=== PATIENT | female | born 1965 | race Caucasian/White ===

== ENCOUNTER 2016-07-06 08:39 | Emergency (ER) | payer OTHER ==
[~2016-07-06] VITALS: Ht 152.4 cm; Wt 67.1 kg
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
[2016-07-06] MEDS ORDERED: PREDNISOLO15 MG/5 M4 PO (09:21)
--- NOTE | 2016-07-06 10:43 | RADIOLOGY REPORT ---
EXAMINATION: XR PELVIS. Right foot. Lumbar spine. CLINICAL INFORMATION: Fall with pain COMPARISON: None TECHNIQUE: AP view of the pelvis. Three-view right foot. 4 view lumbar spine. FINDINGS: There is no evidence of acute fracture or dislocation of the right foot. There is some soft tissue swelling seen about the metatarsophalangeal joints. There is mild hallux valgus deformity of the first metatarsophalangeal joint. There is no evidence of acute fracture or diastases of the pelvis. Hip joints appear maintained. There is some deformity about the right iliac crest which may be related to previous surgery for donor bone graft. There is a 1.2 x 0.7 cm density seen about the medial aspect of the right ileum which may represent bone island or possible appendicolith. No significant sacroiliac joint disease is seen. There are 5 nonrib bearing lumbar vertebra. The bony texture and alignment is satisfactory. No acute fracture, spondylolisthesis, spondylolysis is appreciated. No sacrum or coccygeal abnormality seen. There is some mild prominence of the L4-L5 and L5-S1 facet joints which may be related to some degree of facet arthropathy. IMPRESSION: Soft tissue swelling without significant bony abnormality of the right foot identified. No evidence of acute fracture or diastases of the pelvis. Probable right iliac bone donor site and right iliac bone island or appendicolith. No significant lumbosacral spine abnormality identified.
[2016-07-06] MEDS ORDERED: PERCOCET 5-3251 EACH PO (10:53)
[2016-07-06 11:01] VITALS: BP 120/80
== END 2016-07-06 11:02 ==
LOC: ERH 08:39
DX: S60.221A Contusion of right hand, initial encounter (principal); S09.90XA Unspecified injury of head, initial encounter; M54.5 Low back pain; W10.9XXA Fall (on) (from) unspecified stairs and steps, initial encounter; Y93.89 Activity, other specified
CPT/HCPCS: 72110; 72170; 73630-RT; 96372

== ENCOUNTER 2016-09-06 13:03 | Inpatient (IN) | payer OTHER ==
[~2016-09-06] VITALS: Ht 158.8 cm; Wt 67.6 kg
[~2016-09-06 13:03] MED LIST: PERCOCET 5-3251 EACH PO; PREDNISOLO15 MG/5 M4 PO
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
--- NOTE | 2016-09-06 13:14 | NUR ---
PT STATES SHE HAS BEEN TAKING HER MEDICATION BUT SHE HATES TAKING IT BECAUSE IT HAS MADE HER GAIN WEIGHT AND SHE IS NOW STRUGGLING WITH BULIMIA AND ANOREXIA AGAIN. PT STATES "I JUST PRAY EVERYDAY LILLIANA TAKES ME HOME. I HATE LIVING THIS WAY"
--- NOTE | 2016-09-06 13:27 | NUR ---
PT TO ROOM 13 FOR EVAL, FAMILY MEMBER WITH PATIENT. REPORT GIVEN TO DESTINEY VASQUEZ CALLED FOR A WANDING
--- NOTE | 2016-09-06 13:30 | NUR ---
SECURITY AT BEDSIDE FOR WANDING PT CHANGED INTO BLUE SCRUBS
--- NOTE | 2016-09-06 13:31 | NUR ---
PT PRESENTS WITH STEVE FOR +SI AND INCREASED DEPRESSION. PT REPORTS THAT SHE "IS NOT ABLE TO GET PAST THE OF HER GRANDDAUGHTER WHICH WAS A FEW YEARS AGO." PER PT, SHE HAS NEUROVEGETATIVE SYMPTOMS INCLUDING STAYING IN BED ALL DAY, POOR APPETITE AND CAN GO 2-4 DAYS WITHOUT EATING. PT'S STEVE WHO LIVES WITH HER STATES HE MAKES SURE SHE EATS AT LEAST ONCE A DAY AND TAKES HER PRESCRIBED MEDICATIONS. PT STATES SHE HAS A "FEAR OF LEAVING THE HOUSE BECAUSE IT IS HER SAFETY ZONE". PT REPORTS PRIOR INPATIENT STAYS, MOST RECENTLY IN DECEMBER 2015 IN [place]. PT REPORTS NIGHTMARES, OCCASIONAL ETOH (WINE) AND HAS A MEDICINAL MARIJUANA CARD. PT REPORTS MEDS INCLUDE - PRISTIQ, BRINTELLEX, MINIPRESS 10MG QHS, HALCION AND VALIUM 10MG QID. PT REPORTS HX OF STOMACH ULCER AND BACK PAIN. PT STATES SHE TOOK SOME PERCOCET RECENTLY THAT HAD BEEN PRESCRIBED TO HER, BUT THAT SHE DOES NOT HAVE A PAIN MANAGEMENT MD. PT REPORTS APPROX 3 HOURS OF SLEEP PER NIGHT WITH MEDICATIONS.
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
[2016-09-06 14:15] LABS: ABSOLUTE BASOPHIL COUNT 0 /CUMM (0.0-0.2); ABSOLUTE EOSINOPHIL COUNT 0.2 /CUMM (0.0-0.7); ABSOLUTE GRANULOCYTE CT 5.3 /CUMM (1.4-6.5); ABSOLUTE LYMPH COUNT 1.9 /CUMM (1.2-3.4); ABSOLUTE MONOCYTE COUNT 0.6 /CUMM (0.10-0.60); BASOPHIL % 0.4 % (0.0-2.0); EOSINOPHIL % 2.2 % (0-5); HEMATOCRIT 39.4 % (37-47); MEAN CORPUSCULAR HGB 31.4 PG (27.0-31.0); MEAN CORPUSCULAR VOLUME 92.5 FL (81.0-99.0); PLATELET COUNT 348 /CUMM (130-400); RBC DISTRIBUTION WIDTH 15.2 % (11.5-14.5); RED BLOOD CELL CT 4.26 /CUMM (4.20-5.40)
--- NOTE | 2016-09-06 14:30 | NUR ---
DR MODI AT BEDSIDE
--- NOTE | 2016-09-06 14:54 | NUR ---
CALLED [facility] FOR DUO-FLORENTINO TREATMENT PER VERBAL ORDER BY DR MODI
--- NOTE | 2016-09-06 16:00 | NUR ---
PER PT, [facility] GAVE HER DUO-NEB TREATMENT
--- NOTE | 2016-09-06 17:24 | NUR ---
THIS RN CALLED [facility] TO REMIND THEM TO SIGN OFF ON DUO-NEB TREATMENT GIVEN TO PT. THE RT WHO HAD GIVEN TREATMENT LEFT AT 3PM.
[2016-09-06] MEDS ORDERED: BRINTELLIX20 M1 PO (17:43)
[2016-09-06] MEDS ORDERED: TRIAZOLAM0.25 M1 PO (17:44)
[2016-09-06] MEDS ORDERED: PROVENTIL HFA6.7 GM INH (17:45)
[2016-09-06] MEDS ORDERED: MINIPRESS5 MG PO (17:45)
[2016-09-06] MEDS ORDERED: PRISTIQ ER50 MG PO (17:45)
[2016-09-06] MEDS ORDERED: DIAZEPAM10 M1 PO (17:45)
[2016-09-06] MEDS ORDERED: BREO ELLIPTA 11 EACH (17:46)
--- NOTE | 2016-09-06 17:47 | NUR ---
MED REC COMPLETED WITH PT. PT REQUESTING VALIUM 10MG AND NICOTINE PATCH AT THIS TIME. WILL MAKE DR MODI AWARE
--- NOTE | 2016-09-06 18:02 | NUR ---
PT MEDICATED WITH VALIUM 10MG PO AND APPLIED 21MG NICOTINE PATCH TO LUE PT'S FIANCEE AT BEDSIDE. PT CALM AND COOPERATIVE. SITTER AT DOOR.
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
--- NOTE | 2016-09-06 19:15 | NUR ---
TRANSPORT BOOKED FOR PT TO [facility]. PT LYING ON BED WITH , CALM AND COOPERATIVE. SITTER AT DOOR.
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
[2016-09-06 22:52] VITALS: BP 149/95
[2016-09-07 07:53] VITALS: BP 117/72
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
[2016-09-07 12:07] VITALS: BP 118/83
--- NOTE | 2016-09-07 12:55 | NUR ---
PT VISIBLE MOST OF THE DAY IN THE MILIEU. SHE WENT TO PLANNING MEETING THIS MORNING BUT REFUSED TO TALK IN GROUP. HOWEVER, SHE DID GO TO FOCUS GROUP AND HAD ACTIVE PARTICIPATION. IN THE BEGINNING OF THE MORNING PT WAS MORE ISOLATIVE, BUT THE DAY PROGRESSED PT HAS BEEN IN THE MILIEU INTERACTING WITH SOME OF HER PEERS. PT IS COMPLIANT WITH THE RULES OF THE UNIT, AND DENIES THOUGHTS TO HURT HERSELF WHEN ASKED.
[2016-09-07 15:45] VITALS: BP 134/78
--- NOTE | 2016-09-07 18:46 | History & Physical ---
General Information and HPI MD Statement: I have seen and personally examined YADI ELIZABETH and documented this H&P. The patient is a 51 year old F who presented with a patient stated chief complaint of depression and suicidal ideation. Source of Information: patient, old records Exam Limitations: no limitations History of Present Illness: The patient is a 51 yo female with h/o depression, COPD, anxiety, bipolar, anorexia, chronic back pain/spinal stenosis/disk disease who presented in the [facility] ED with c/o increased depression and suicidal ideation. Significant stress due to her daughter being in fci after of her 2 year old granddaughter due to her having taken suboxone. She stated that she was unable to cope with the stress. She had decreased appetite. She has a distant h/o drug abuse (crack cocaine), however her urine screen was positive for marijuana. She does describe some increased wheezing and back pain. She denies any fever, chills, purulent sputum, chest pain, abdominal pain. She had been taking some narcotics for back pain. Has GI upset from Ibuprofen and stated that she sometimes took Carafate suspension to ease stomach discomfort. She does use Symbicort inhaler. Allergies/Medications Allergies: Coded Allergies: bee venom protein (honey bee) (Severe, ANAPHYLAXIS 07/06/16) Penicillins (HIVES 07/06/16) Home Med list Albuterol Sulfate (Proventil Hfa) 90 MCG HFA.AER.AD 2 PUF INH 4 TIMES/DAY COPD (Reported) Desvenlafaxine Succinate (Pristiq ER) 50 MG TAB.ER.24H 1 TAB PO DAILY MENTAL HEALTH (Reported) Diazepam 10 MG TABLET 1 TAB PO 4XDP MENTAL HEALTH (Reported) Fluticasone/Vilanterol (Breo Ellipta 100-25 Mcg INH) 100 MCG-25 MCG/DOSE BLST.W.DEV COPD (Reported) Oxycodone HCl/Acetaminophen (Percocet 5-325 MG Tablet) 5 MG-325 MG TABLET 1 TAB PO Q6HR PRN PAIN Prazosin HCl (Minipress) 5 MG CAPSULE 2 CAP PO QPM NIGHTMARES (Reported) Triazolam 0.25 MG TABLET 2 TAB PO QPM INSOMNIA (Reported) Vortioxetine Hydrobromide (Brintellix) 20 MG TABLET 1 TAB PO DAILY MENTAL HEALTH (Reported) Compliance With Home Meds: GOOD Past History Travel History Traveled to [place] past 21 day No Medical History Neurological: NONE EENT: NONE Cardiovascular: NONE Respiratory: asthma, COPD, emphysema Gastrointestinal: NONE Hepatic: NONE Renal: NONE Musculoskeletal: disk herniation, degen joint disease, spinal stenosis Psychiatric: bipolar disease, depression Endocrine: NONE Blood Disorders: NONE Cancer(s): NONE DOWEL MAKER/Reproductive: NONE, HYSTERECTOMY History of MRSA: No History of VRE: No History of CDIFF: No Isolation History: Standard Surgical History Surgical History: non-contributory Past Family/Social History Family History Relations & Conditions if any MOTHER (HTN). Psychosocial History Primary Language: Croatian Smoking Status: Current Everyday Smoker ETOH Use: denies use Illicit Drug Use: denies illicit drug use, FORMER CRACK COCAINE Functional Ability Ambulation: independent Review of Systems Review of Systems Constitutional: Denies: no symptoms. EENTM: Denies: no symptoms. Cardiovascular: Denies: no symptoms. Respiratory: Reports: wheezing. GI: Denies: no symptoms. Genitourinary: Denies: no symptoms. Musculoskeletal: Reports: back pain (LOW BACK PAIN-DISK/SPINAL STEN). Skin: Denies: no symptoms. Neurological/Psychological: Denies: no symptoms. Hematologic/Endocrine: Denies: no symptoms. Immunologic/Allergic: Denies: no symptoms. Exam & Diagnostic Data Last 24 Hrs of Vital Signs/I&O Vital Signs Date Time Temp Pulse Resp B/P B/P Pulse O2 O2 Flow FiO2 Mean Ox Delivery Rate 09/09 1233 79 131/85 09/09 0737 96.3 93 116/72 09/08 2209 76 135/76 09/09 2011 95.6 135/76 09/08 1800 97 Room Air Room Air 09/08 1553 76 141/95 Physical Exam General Appearance Alert, Oriented X3, Cooperative, No Acute Distress Skin No Rashes, No Breakdown, No Significant Lesion HEENT Atraumatic, PERRLA, EOMI, Mucous Membr. moist/pink Neck Supple, No JVD, No thryomegaly, +2 Carotid Pulse wo Bruit, No LAD Cardiovascular Regular Rate, Normal S1, Normal S2, No Murmurs Lungs MILD EXPIRATORY WHEEZE, DIFFUSE Abdomen Normal Bowel Sounds, Soft, No Tenderness, No Hepatospenomegaly Neurological Exam Findings: Normal Gait, Normal Speech, Strength at 5/5 X4 Ext, Normal Tone, Sensation Intact, Cranial Nerves 3-12 NL, Reflexes 2+ Cranial Nerves II through XII: INTACT Extremities No Clubbing, No Cyanosis, No Edema, Normal Pulses, No Tenderness/ Swelling Vascular Normal Pulses, Pulses Symmetrical Assessment/Plan Assessment: #Depression/Suicidal Ideation- in patient with significant stressors. Plan: Admit to [facility]ell/Psychiatry. Meds as per psychiatry. #Asthma/COPD- some mild wheezing at present. Plan: Continue long acting med ed (Symbicort in place of Breo) and Proventil HFA qid. #Chronic Back Pain- patient states disk disease and spinal stenosis. Plan: Tylenol at present and would try to limit oxycodone. #Nicotine Dependence- on patch. Plan: Continue Nicotine Patch. As Ranked By This Provider Problem List: 1. Depression 2. Back pain 3. COPD (chronic obstructive pulmonary disease) Miscellaneous Miscellaneous Documentation Attending Case Discussed With: FABBY REYES,CHALINO [place] Primary Care Physician: UNKNOWN Patient sees these Specialists NONE Level of Patient Care: [facility]ell Consults Needed: Consulting Physician: NONE Attending MD Review Statement Attending Statement Attending Assessment/Plan: SEE ABOVE
[2016-09-07 20:38] VITALS: BP 120/83
--- NOTE | 2016-09-07 21:45 | NUR ---
PT IS VISIBLE ON UNIT, SOCIALIZING WITH PEERS AND WATCHING TV IN LOUNGE. COOPERATIVE AND COMPLIANT WITH STAFF. ATTENDED WRAP UP MEETING THIS EVENING. NO COMPLAINTS OR SI REPORTED. AT TIMES PT IS TEARFUL BUT RESPONDS WELL TO SUPPORT FROM STAFF. PT HAS AN ANXIOUS MOOD AND TEARFUL AFFECT.
--- NOTE | 2016-09-08 03:58 | NUR ---
Dr. Dwyer and Respiratory therapy contacted due to patient increased wheezing, shortness of breath, tripod positioning; on assessment by RT, O2 saturation was 91-92% on room air; per Dr. Dwyer, nebulizer treatment ordered; see medication orders; patient coughing, congestion in lungs evident; will continue to monitor respiratory status.
--- NOTE | 2016-09-08 04:17 | NUR ---
NEBULIZER TREATMENT COMPLETED, PATIENT BREATHING BETTER, LESS SHORTNESS OF BREATH, WHEEZING AND CONGESTION STILL PRESENT BUT GREATLY REDUCED, NO ACCESORY MUSCLE USE, NO TRIPOD POSITIONING.
--- NOTE | 2016-09-08 06:02 | NUR ---
PATIENT AWAKE MOST OF THE NIGHT DUE TO INCREASED SHORTNESS OF BREATH, WHEEZING, CONGESTION; PATIENT SLEPT LAST COUPLE OF HOURS AFTER NEBULIZER TREATMENT HAD IMPROVED HER BREATHING.
[2016-09-08 07:54] VITALS: BP 130/75
--- NOTE | 2016-09-08 12:11 | NUR ---
PT ALTERNATES BETWEEN BEING IN HER ROOM AND BEING PRESENT WITHIN THE MILIEU WHERE SHE APPEARS AT TIMES ANXIOUS AND TEARFUL, HOWEVER IS ABLE TO ASSERT SELF AND MAKE NEEDS KNOWN, NO ISSUES OR COMPLAINTS REPORTED OR OBSERVED, DID NOT ATTEND PLANNING MEETING YET MADE AN EFFORT AND CAME TO FOCUS GROUP WHERE THERE WAS APPROPRIATE INTERACTION WITH PEERS AND STAFF, MEDICATION COMPLAINT.
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
[2016-09-08 15:53] VITALS: BP 141/95
[2016-09-08 20:12] VITALS: BP 135/76
--- NOTE | 2016-09-08 22:53 | NUR ---
PT APPEARED TO LOOK AND SEEM BRIGHTER THAN PAST OBSERVATION. SHE HAS BEEN SMILING AND EXPRESSED TO STAFF THAT SHE IS TRYING TO "FAKE IT TIL YA MAKE IT". SHE ALSO REPORTED THAT THOUGHTS IN HER HEAD WERE "LOOPING" AND IT WAS DIFFICULT FOR HER TO COPE WITH NEGATIVE THOUGHTS OF LOSING HER GRAND CHILD. PT DENIED ANY THOUGHTS OF SI WHEN ASKED.
--- NOTE | 2016-09-09 05:30 | NUR ---
PT WAS UP ONCE IN THE NIGHT AND THEN UP AT 0430 FOR THE MORNING. PT WITH SIGNIFICANT BACK PAIN, RECEIVING PERCOCET X 2, AT 1999 AND 0430.
[2016-09-09 07:37] VITALS: BP 116/72
[2016-09-09 12:33] VITALS: BP 131/85
--- NOTE | 2016-09-09 14:20 | NUR ---
PT IN ROOM MOST OF THE DAY TODAY. HER GOAL WAS TO TALK TO DOCTOR ABOUT MEDICATIONS, AND TO ACTIVELY LISTEN. PT WAS IN ROOM MOST OF THE DAY BECAUSE OF HER BACK HURTING HER. SHE DID NOT ATTEND OTHER GROUPS TODAY AND HAS BEEN LAYING DOWN. SHE HAS BEEN COOPERATIVE WITH STAFF DIRECTION, AND DENIES THOUGHTS TO HURT HERSELF WHEN ASKED.
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
[2016-09-09 16:39] VITALS: BP 112/68
--- NOTE | 2016-09-09 18:35 | SOCIAL WORKER PROG NOTE PSYCH ---
Social Work Progress Note Progress Note COMPLETED P ONLINE REVIEW - REQUESTED CONTINUED STAY - CHECK WEB.
--- NOTE | 2016-09-09 19:26 | NUR ---
PT IS CALM, COOPERATIVE WITH STAFF AND PEERS, AND COMPLIANT WITH UNIT RULES. IS OFTEN IN MILIEU, SLIGHTLY WITHDRAWN, BUT DOES INTERACT WELL WITH OTHERS WHEN ENGAGED. MOOD IS STABLE, AFFECT APPEARS EUTHYMIC TO FULL RANGE, COMMUNICATION IS ORGANIZED AND APPEARS NORMAL IN ALL RESPECTS, AND APPETITE IS NORMAL. PT DENIES SI AT THIS TIME.
[2016-09-09 20:11] VITALS: BP 132/88
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
--- NOTE | 2016-09-10 05:56 | NUR ---
PT SLEPT BETTER WITH EGG LOPEZ ON BED. BACK PAIN PERSISTS.
[2016-09-10 07:53] VITALS: BP 102/70
[2016-09-10 12:29] VITALS: BP 106/56
--- NOTE | 2016-09-10 13:49 | NUR ---
PT IS COMPLIANT AND COOPERATIVE. MOOD IS STABLE WITH A FLAT AFFECT. PT APPEARS ANXIOUS AND DEPRESSED. PT DENIES SI AT THIS TIME, C/O CHRONIC BACK PAIN. PT TENDS TO BE ISOLATIVE IN BED- SLEEPING ON AND OFF. PT OOB FOR MEALS AND VITALS. PT IS ATTENDING SOME GROUPS. VITALS ARE STABLE, APPETITE IS GOOD.
[2016-09-10 16:41] VITALS: BP 120/84
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
--- NOTE | 2016-09-10 19:03 | CP SOUTH PROGRESS NOTE PSYCH ---
Psych (Inpt) Progress Note Progress Note Include the following elements, when applicable: Involvement in the active treatment of the patient with behavioral observations of the patient and the patient's response to the treatment. Review of the ongoing treatment process in the context of the treatment plan. Indication of how multi-disciplinary staff members are carrying out the treatment plan. Plans for future interventions and recommendations for revision of the treatment plan. Liaison with other physicians/providers. Progress Note: PSYCHIATRIST NOTE, 09/10/2016: I discussed this patient's progress to date, current mental status, treatment and discharge planning with staff team today in the daily morning ITTM and also met with her again myself in indivdual session. Patient is tolerating the upward titration in dose of Pristiq well thus far and received her last tapering dose of vortioxetine (10mg) this morning. Though I would like to start tapering current high dose (outpatient) Valium at this point I am concerned this might destabilize patient in the short-term, and she does appear to be improving clinically, is not as intensely sullen, depressed and withdrawn; likely, benzodiazepine taper will have to wait for extended aftercare/monitoring in the IOP setting. Sleep is gradually improving and patient feeling a little more rested but is continuing to experience nightmares, and we are titrating up on Prazosin dose at HS. We are trying to organize a family meeting, but it appears that patient has either alienated or just fallen away from contact with her relatives; we will definitely meet with patient and longtime partner prior to discharge.
[2016-09-10 19:56] VITALS: BP 112/80
--- NOTE | 2016-09-11 07:06 | NUR ---
PT GIVEN PRN PERCOCET AT 2200, PRN XANAX 0.25 PRN AT 2200. SHE WAS UP AGAIN AT 0300 AND SHE WAS GIVEN TRAZADONE PRN AND MELATONIN PRN. PT RETURNED TO BED AT 0330.
[2016-09-11 07:41] VITALS: BP 96/72
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
[2016-09-11 12:13] VITALS: BP 110/72
[2016-09-11 15:53] VITALS: BP 115/73
--- NOTE | 2016-09-11 16:54 | CP SOUTH PROGRESS NOTE PSYCH ---
Psych (Inpt) Progress Note Progress Note Include the following elements, when applicable: Involvement in the active treatment of the patient with behavioral observations of the patient and the patient's response to the treatment. Review of the ongoing treatment process in the context of the treatment plan. Indication of how multi-disciplinary staff members are carrying out the treatment plan. Plans for future interventions and recommendations for revision of the treatment plan. Liaison with other physicians/providers. Progress Note: PSYCHIATRIST NOTE, 09/11/2016: I discussed this patient's progress to date, current mental status, treatment and discharge planning with staff team today in the daily morning ITTM and also met with her again myself in individual session. I had started patient on low dose Trilafon at HS last night to help with racing thoughts around bedtime. We told me this was helpful and has been utilizing low dose Trilafon PRN during the day as well to help with ruminative thinking; I will double HS dose tonight to 4mg. We are also continuing slow upward titration in dose of Prozosin for disruptive nightmares interfering with restful sleep; patient reports reduction in nightmares to one last night from two the previous night. We have not started tapering Valiuim but HS Xanax has been completely discontinued now (possibly temporarily adding to sleep induction/maintenane difficulties). Patient is better able to interact/converse with regard to her need to emerge from her grief over granddaughter's and daughter's incarceration and becoming less depressed as a result, not more so.
--- NOTE | 2016-09-11 18:28 | NUR ---
PT IS CALM, COOPERATIVE WITH STAFF AND PEERS, AND COMPLIANT WITH UNIT RULES. BOTH IN AND OUT OF MILIEU, AT TIMES SLIGHTLY WITHDRAWN, BUT DOES FOR THE MOST PART INTERACT WELL WITH OTHERS. MOOD IS STABLE, AFFECT APPEARS EUTHYMIC TO FULL RANGE, COMMUNICATION IS ORGANIZED AND APPEARS NORMAL IN ALL RESPECTS, AND APPETITE IS NORMAL. PT DENIES SI AT THIS TIME.
--- NOTE | 2016-09-11 19:45 | SOCIAL WORKER PROG NOTE PSYCH ---
Social Work Progress Note Progress Note Sw met with patient earlier this evening. She reported that her medications have been helpful in managing moods as well as ruminating thoughts. She also reported that her sleep improved slightly and experienced one nightmare last night compared to the two the previous night. Pt inquired about potential discharge before Friday as she would like to attend a family event. Sw encouraged her to speak with Dr. Echavarria about this as well. Sw met with patient in her room where she stated that she went after her grief was triggered by something she saw on the television. She is interested in attending IOP following d/c from this inpatient unit as well as treatment to address her grief. Sw encouraged her to utilize staff support while on the unit.
[2016-09-11 19:55] VITALS: BP 129/78
[2016-09-12 07:46] VITALS: BP 108/63
[2016-09-12 12:17] VITALS: BP 107/66
--- NOTE | 2016-09-12 13:37 | NUR ---
PT IS OUT OF ROOM SLIGHTLY MORE, MOOD IS OVERALL STABLE WITH CONSTRICTED AFFECT AT TIMES YET, FULL RANGE/APPROPRIATE WHEN ENGAGED IN CONVERSATION. CALM, COOPERATIVE, PLEASANT, DID ATTEND PLANNING MEETING TODAY WHERE SHE REPORTED INTERRUPTED SLEEP YET, ANUJAQuin WAS TO GO TO GROUPS AND MEET WITH TEAM.
[2016-09-12 15:52] VITALS: BP 123/78
--- NOTE | 2016-09-12 16:27 | SOCIAL WORKER PROG NOTE PSYCH ---
Social Work Progress Note Progress Note 3pm This service writer met with pt. She reported continuing to struggle with depression, which has further been triggered by her back pain today; she stated that her anxiety medications were helpful. Pt stated that she was feeling sad due to learning that the family event was scheduled for today rather than tomorrow. Pt discussed feeling motivated to continue with treatment in order to manage her MH sx. Pt was in agreement with scheduling a family session with her significant other, Rogers (Galen Churchill), and signed a ES. She also signed a ES for her outpatient provider, [facility] in [place]. She was in agreement with attending IOP and identifying/scheduling an appointment with a paint coating machine operator. This service writer met with Dr. Echavarria to discuss the case. Medications will continue to be monitored and adjusted through the weekend. This service writer will continue to work on a discharge plan. This service writer spoke with Galen Churchill and scheduled a family meeting for 1pm on 09/13/16.
--- NOTE | 2016-09-12 18:02 | NUR ---
PT IS CALM, COOPERATIVE WITH STAFF AND PEERS, AND COMPLIANT WITH UNIT RULES. OFTEN IN MILIEU, PT IS INTERACTING WELL WITH OTHERS. MOOD IS STABLE, COMMUNICATION IS ORGANIZED AND APPEARS NORMAL IN ALL RESPECTS, AND APPETITE IS NORMAL. PT DENIES SI AT THIS TIME.
--- NOTE | 2016-09-12 18:55 | SOCIAL WORKER PROG NOTE PSYCH ---
Social Work Progress Note Progress Note Clinical entered into [facility] requesting continued inpt stay.
[2016-09-12 19:58] VITALS: BP 122/79
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
[2016-09-13 07:48] VITALS: BP 116/73
[2016-09-13] MEDS ORDERED: PERPHENAZINE8 M1 PO (11:53)
[2016-09-13] MEDS ORDERED: PRAZOSIN HCL5 M1 PO (11:53)
[2016-09-13] MEDS ORDERED: TRAZODONE HCL100 M1 PO (11:53)
[2016-09-13] MEDS ORDERED: NICOTINE PATCH1 EAC3 TOP (11:53)
[2016-09-13] MEDS ORDERED: MELATONIN5 M7 PO (11:53)
[2016-09-13] MEDS ORDERED: LITHIUM CARBON300 M4 PO (11:53)
[2016-09-13] MEDS ORDERED: PRISTIQ ER50 MG PO (11:53)
[2016-09-13] MEDS ORDERED: LAMICTAL25 M1 PO (11:53)
[2016-09-13] MEDS ORDERED: PRISTIQ ER100 MG PO (12:04)
--- NOTE | 2016-09-13 12:07 | SOCIAL WORKER PROG NOTE PSYCH ---
Social Work Progress Note Progress Note This Sw spoke with Bridget Vigil LPC at [facility] regarding this referral. A intake appointment for [facility] has been scheduled for 09/16/16, at 12:45pm. This was reviewed with pt, who accepted the appt date. Additionally, pt has agreed to contact her insurance to inquire about pain management specialists. This leader writer attempted to identify potential providers, however pt's insurance was not accepted. 1:25pm Dr. Echavarria and this leader writer met with patient and her significant other for a family/discharge meeting. Medications and related questions/concerns were discussed. Improvement in sx were discussed and pt denied SI/HI/AH/VH. She reported, "I feel safe now." Pt's significant other reported observations about the pt's improvement. "She used to have tears in her eyes all the time and seemed to be distant. She isn't like that now." Pt discussed looking forward to seeing her cat and spending time with her granddaughter when she will help her pick out fish for the granddaughter's new aquarium. She also discussed interest in obtaining a fishing license and enjoying fishing with her significant other. Discharge plans were reviewed. She accepted a treatment recommendation of IOP and agreed to attend the intake assessment on 09/16/16 at 12 :45pm at [facility]. She also accepted a smoking cessation group date of 09/25 at 4pm. Pt will call her insurance company to identify a sandblaster paint sprayer that accepts her insurance. Following the meeting, this leader writer and pt attempted to reach her outpatient provider at [facility]. The message indicated that the hotel receptionist was not there at this time on a Friday. Pt will attempt to reach them on Friday to follow up and a message was relayed to Bridget Vigil at [facility].
[2016-09-13 12:37] VITALS: BP 129/77
--- NOTE | 2016-09-13 13:28 | NUR ---
ANTICIPATE DISCHARGE TODAY AFTER FAMILY MEETING. MOOD IS STABLE, EUTHYMIC AFFECT. DENIED THOUGHTS OF SI WHEN ASKED. GIVEN EDUCATION ON SUICIDE PREVENTION AND DEPRESSION
--- NOTE | 2016-09-13 16:22 | CP SOUTH PROGRESS NOTE PSYCH ---
Psych (Inpt) Progress Note Progress Note Include the following elements, when applicable: Involvement in the active treatment of the patient with behavioral observations of the patient and the patient's response to the treatment. Review of the ongoing treatment process in the context of the treatment plan. Indication of how multi-disciplinary staff members are carrying out the treatment plan. Plans for future interventions and recommendations for revision of the treatment plan. Liaison with other physicians/providers. Progress Note: PSYCHIATRIST NOTE (COUPLE'S MEETING/DISCHARGE), 09/13/2016: I discussed this patient's progress to date, current mental status, treatment and discharge plans with staff team today in the daily morning ITTM; Chantal Desouza LCSW, and I met with patient and her long time partner in a couple's session prior to discharging her to the [facility] where she has an intake scheduled on 09/16/2016 at 12:45pm. Partner expressed appropriate concern for patient's welfare, safety and recovery and endorsed the plan for transition through the [facility] to [facility]. He was pleased with the improve he noted over the course of this week ("she is happier; she smiles; she has to take care of herself now"). We went over current medication regimen and the recommendation/expectation of gradual taper and discontinuation of current Valium therapy under medical supervision while attending the [facility]. Low dose [place] carbonate has been started but no level obtained yet; patient has not experienced any related side effects to date on current dose of 600mg/day. She noted particular benefit from the regular and PRN doses of Trilafon in calming her racing thoughts and helping her to organize herself and face the future. Currently, patient is bright and cheerful in affect (in contrast to her sullen tearfulness earlier in the week, euthymic, showing no evidence of suicidal or homicidal ideation, plans, intent or impulses and well aware of her own safety plan should she ever in future come to believe herself at acute risk of self-harm or harming others. For further details, see the progress note of this date by Chantal Desouza LCSW, in the electronic medical record. (for complete listing of all discharge medications, dosages, scheduling, amounts prescribed, indications, see the "Discharge Medications" section of discharge summary from this admission in the electronic medical record)
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
== END 2016-09-13 14:30 | DRG 753 ==
LOC: ERH 13:03 → CP SOUTH 17:49 → ERHI 17:49 → EDBEDREQ 18:45 → ENTRNSPT 19:27 → ERHI 19:50 → CMPTRNSPT 19:55 → CP SOUTH 19:56
PROVIDERS: Emergency Medicine; ADMIT Psychiatry & Neurology Addiction Medicine
DX: F31.9 Bipolar disorder, unspecified (principal)
CPT/HCPCS: 80307; 93005; 93010; G0480; J3360; J3490